=== PATIENT | female | born 1990 | race African-American/Black ===

== ENCOUNTER 2022-03-03 09:12 | Emergency (ER) | payer OTHER, SELFPAY ==
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
[2022-03-03 09:19] VITALS: BP 112/81; PULSE 105; RESP 16; TEMP 37.2; O2SAT 100
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
[2022-03-03] MEDS: IBUPROFEN 600 MG TABLET PO (10:13)
[2022-03-03 10:45] VITALS: BP 109/90; PULSE 78; RESP 16; O2SAT 98
== END 2022-03-03 10:49 | disposition home or self-care (01) ==
PROVIDERS: Emergency Provider Nurse Practitioner Family
DX: S06.0X0A Concussion without loss of consciousness, initial encounter (principal); S46.911A Strain of unspecified muscle, fascia and tendon at shoulder and upper arm level, right arm, initial encounter; V43.63XA Car passenger injured in collision with pick-up truck in traffic accident, initial encounter
CPT/HCPCS: 70450; 73030; 81025; 99284; A9270